=== PATIENT | female | born 1965 | race Caucasian/White ===

== ENCOUNTER 2021-06-18 07:41 | Outpatient (REF) | payer OTHER, SELFPAY ==
--- NOTE | ~2021-06-18 | XR_ITS ---
EXAMINATION: XR KNEE STANDING, BILATERAL XR KNEE, RIGHT CLINICAL INFORMATION: Pain. COMPARISON: None TECHNIQUE: AP standing views of both knees as well as lateral and sunrise views of the right knee. FINDINGS: There is no evidence of acute fracture or dislocation of the right knee. No right knee effusion is identified. There is some mild spurring undersurface of the patella. There is mild narrowing of the medial joint space compartments bilaterally. A bone island is seen within the proximal left tibia. On the provided images is a question of segmentation of the left patella on AP view. 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 Minimal narrowing of the medial joint space compartments.
--- NOTE | ~2021-06-18 | XR_ITS ---
EXAMINATION: XR KNEE STANDING, BILATERAL XR KNEE, RIGHT CLINICAL INFORMATION: Pain. COMPARISON: None TECHNIQUE: AP standing views of both knees as well as lateral and sunrise views of the right knee. FINDINGS: There is no evidence of acute fracture or dislocation of the right knee. No right knee effusion is identified. There is some mild spurring undersurface of the patella. There is mild narrowing of the medial joint space compartments bilaterally. A bone island is seen within the proximal left tibia. On the provided images is a question of segmentation of the left patella on AP view. XR/XR knee standing BI IMPRESSION: Mild degenerative change of the right patellofemoral joint. Minimal narrowing of the medial joint space compartments.
== END 2021-06-18 07:42 | disposition home or self-care (01) ==
LOC: HO.HOSX 07:41
PROVIDERS: Visit Provider Physician Assistant
DX: M17.11 Unilateral primary osteoarthritis, right knee (principal)
CPT/HCPCS: 20610; 73560; 73565; J1040